=== PATIENT | female | born 1945 | race Caucasian/White ===

== ENCOUNTER 2016-06-01 10:19 | Inpatient (IN) ==
[2016-06-01] MEDS ORDERED: ZOFRAN 4 MG/2 ML IM STA (10:41)
[2016-06-01] MEDS ORDERED: MORPHINE 4 MG/ML SYRINGE IM STA (10:41)
[2016-06-01 11:00] LABS: BASOPHILS % (AUTO) 0.4 % (0.0-3.0); EOSINOPHILS # (AUTO) 0.1 K/ul (0.0-0.7); EOSINOPHILS % (AUTO) 1.1 % (0.0-7.0); HEMATOCRIT 36.3 % (37.0-47.0); HEMOGLOBIN 11.5 g/dl (12.0-16.0); IMMATURE GRANULOCYTE % (AUTO) 0.4 % (0.0-5.0); LYMPHOCYTES # (AUTO) 0.9 K/uL (0.60-3.4); LYMPHOCYTES % (AUTO) 16.9 (10.0-50.0); MEAN CORPUSCULAR HEMOGLOBIN 28.6 pg (27.0-31.0); MEAN CORPUSCULAR HGB CONC 31.7 (31.8-35.4); MEAN CORPUSCULAR VOLUME 90.3 fl (81.0-99.0); MONOCYTES # (AUTO) 0.3 K/uL (0.4-2.0); MONOCYTES % (AUTO) 4.7 (0-10); NEUTROPHILS # (AUTO) 4.3 K/ul (2.0-6.9); NEUTROPHILS % (AUTO) 76.5; PLATELET COUNT 188 10^3/uL (140-440); RED BLOOD COUNT 4.02 10^6/ul (4.20-5.40); WHITE BLOOD COUNT 5.57 K/ul (4.6-10.2)
--- NOTE | 2016-06-01 11:15 | DI ---
EXAM: Chest two views HISTORY: Cough COMPARISON: None TECHNIQUE: Two views of the chest were performed FINDINGS: There is lower airway bronchial wall thickening. Lungs are hyperinflated There is no foc al airspace consolidation. There is no pleural effusion or pneumothorax. The heart is normal in siz e. The mediastinal contour is normal, noting atherosclerosis. There is no acute abnormality of the bones. IMPRESSION: 1. Lower airway thickening may represent reactive airways disease or bronchiolitis. No focal airsp madhu consolidation. 2. Hyperinflated lungs suggest chronic obstructive pulmonary disease
[2016-06-01 11:21] LABS: ALBUMIN 4.1 g/dL (3.4-5.0); ALBUMIN/GLOBULIN RATIO 1.32; ANION GAP 15.7; BILIRUBIN,TOTAL 0.43 mg/dL (0.00-1.20); CALCIUM 10.4 mg/dL (8.2-10.2); CREATININE 3.07 mg/dL (0.60-1.30); POTASSIUM 4.7 mmol/L (3.5-5.10); TOTAL PROTEIN 7.2 g/dL (5.8-8.1)
[2016-06-01 11:22] LABS: BUN/CREATININE RATIO 8.79
[2016-06-01 11:26] LABS: BILIRUBIN,URINE Negative (NEGATIVE); KETONES,URINE Negative (NEGATIVE); LEUKOCYTE ESTERASE ,URINE Negative (NEGATIVE); NITRITE,URINE Positive (NEGATIVE); PH,URINE 6.5 (5-9); PROTEIN,URINE Negative (NEGATIVE); URINE, BLOOD Negative (NEGATIVE)
[2016-06-01 11:30] LABS: ADD URINE MICROSCOPIC YES
[2016-06-01 11:31] LABS: BACTERIA,URINE 1+ (NOT PRESENT)
--- NOTE | 2016-06-01 11:46 | CT ---
EXAM: CT of the abdomen and pelvis without contrast History: Abdominal pain. Technique: Multiplanar CT images through the abdomen pelvis were obtained without the administratio n of IV contrast Findings: Numerous right basilar micronodules. Lingular subsegmental atelectasis. No acute osseou s abnormalities. Partial sacralization of L5 bilaterally. Moderate degenerative disc disease at L4 -L5. A few tiny hypoattenuating liver lesions which are too small to characterize accurately by CT but li twyla represent cysts or hemangiomas. Long right lobe of the liver. Calcified granuloma within the spleen. No peripancreatic inflammation. Atherosclerotic vascular calcifications and mild focal dil atation of the infrarenal abdominal aorta. Innumerable bilateral renal cysts some which appear proteinaceous or hemorrhagic. Punctate nonobstr ucting bilateral renal calculi. No hydronephrosis. Adrenal glands are unremarkable. No bowel obst ruction. No free air. No ascites. No bladder wall thickening. Uterus is not seen. Colonic diver ticulosis. Impression: 1. No acute intra-abdominal or pelvic process. 2. Numerous bilateral renal cystic lesions most appear simple but some complicated. 3. Colonic diverticulosis. 4. Small hypoattenuating liver lesions are too small to characterize accurately by CT but most like ly represent small cysts or hemangiomas. 5. Right lower lobe micronodules most likely infectious or inflammatory etiology.
--- NOTE | 2016-06-01 12:40 | ED.PDOC ---
General ED Provider: Dr. 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 AT BE[employer] WORK[facility] OFFICE) GI Complaint Exam - Abdominal Pain Complaint/Exam Onset: Gradual Duration: 1 day Symptoms Are: Still present Timing: Constant Initial Severity: Mild Current Severity: Mild Location of Pain: Suprapubic Character: Reports: Aching Aggravating: Reports: None Alleviating: Reports: None Associated Signs and Symptoms: Denies: Diaphoresis, Fever, Cough, Chest pain, Dizziness, Back pain, Constipation, Blood in stool, Dysuria, Urinary frequency, Decreased urine output, Decreased appetite, Vaginal bleeding, Vaginal discharge , Nausea, Vomiting, Diarrhea, Sore throat, Decreased activity Cardiac Risk Factors: Reports: Hypertension Review of Systems - Review Of Systems Constitutional: Reports: Malaise Eyes: Reports: No symptoms Ears, Nose, Mouth, Throat: Reports: No symptoms Respiratory: Reports: No symptoms Cardiac: Reports: No symptoms GI: Reports: Abdominal pain : Reports: No symptoms Musculoskeletal: Reports: No symptoms Skin: Reports: No symptoms Neurological: Reports: No symptoms Endocrine: Reports: No symptoms Hematologic/Lymphatic: Reports: No symptoms All Other Systems: Reviewed and Negative Past Medical History - Past Medical History Previously Healthy: No Endocrine: Reports: Hypothyroid Cardiovascular: Reports: Hypertension Respiratory: Reports: None Hematological: Reports: None Gastrointestinal: Reports: None Genitourinary: Reports: CKD Neuro/Psych: Reports: None Musculoskeletal: Reports: None Cancer: Reports: None Last Menstrual Period: unknown - Surgical History General Surgical History: Reports: Unknown - Family History Family History: Reports: Unknown - Social History Smoking Status: Former smoker Hx Substance Use: No Alcohol Screening: None Physical Exam - Physical Exam Appearance: Well-appearing Ill-appearing: Mild Pain Distress: Mild Eyes: KAMRAN, EOMI, Conjunctiva clear ENT: Ears normal, Nose normal, Oropharynx normal Respiratory: Airway patent, Breath sounds clear, Breath sounds equal, Respirations nonlabored Cardiovascular: RRR, Pulses normal, No rub, No murmur GI/: Soft, Nontender, No masses, Bowel sounds normal, No Organomegaly Musculoskeletal: Normal strength, ROM intact, No edema, No calf tenderness Skin: Warm, Dry, Normal color Neurological: Sensation intact, Motor intact, Reflexes intact, Cranial nerves intact, Alert, Oriented Psychiatric: Affect appropriate, Mood appropriate Interpretation - Radiology Interpretation Radiology Interpretation By: Radiologist Radiology Results: Negative Exam Interpreted: CXR Physician Notification - Case Discussed Physician Notified: PMD Time of Notification: 13:18 Admit To: Inpatient Critical Care Note - Critical Care Note Total Time (mins): 0 Course - Course Hematology/Chemistry: 06/01/16 10:50 06/01/16 10:50 Orders, Labs, Meds: Lab Review 06/01/16 10:50 WBC 5.57 RBC 4.02 L Hgb 11.5 L Hct 36.3 L MCV 90.3 MCH 28.6 MCHC 31.7 L RDW Coeff of Fran 13.7 Plt Count 188 Immature Gran % (Auto) 0.4 Neut % (Auto) 76.5 Lymph % (Auto) 16.9 Mingo % (Auto) 4.7 Eos % (Auto) 1.1 Baso % (Auto) 0.4 Immature Gran # (Auto) 0.0 Neut # 4.3 Lymph # 0.9 Mingo # 0.3 L Eos # 0.1 Baso # 0.0 Sodium 135 L Potassium 4.7 Chloride 97 L Carbon Dioxide 27 Anion Gap 15.7 BUN 27 H Creatinine 3.07 H Estimated GFR (MDRD) 15.00 BUN/Creatinine Ratio 8.79 Glucose 125 H Calcium 10.4 H Total Bilirubin 0.43 AST 14 L ALT 9 L Alkaline Phosphatase 70 Total Protein 7.2 Albumin 4.1 Globulin 3.1 Albumin/Globulin Ratio 1.32 Amylase 64 Lipase 29 Urine Color Yellow Urine Clarity Clear Urine pH 6.5 Ur Specific Eldena 1.010 Urine Protein Negative Urine Glucose (UA) Trace Urine Ketones Negative Urine Blood Negative Urine Nitrite Positive Urine Bilirubin Negative Urine Urobilinogen 1.0 Ur Leukocyte Esterase Negative Ur Squamous Epith Cells 10-20 Urine Bacteria 1+ Orders Category Date Time Status AMYLASE Stat LAB 06/01/16 10:50 Completed CBC W/ AUTO DIFF Stat LAB 06/01/16 10:50 Completed COMPREHENSIVE METABOLIC PANEL Stat LAB 06/01/16 10:50 Completed LIPASE Stat LAB 06/01/16 10:50 Completed URINALYSIS C & S IF INDICATED Stat LAB 06/01/16 10:50 Completed URINE CULTURE Routine LAB 06/01/16 10:33 Received Morphine Sulfate [Morphine 4 mg/ml Syringe] MEDS 06/01/16 10:41 Discontinued 4 mg IM ONCE STA Ondansetron HCl/Pf [Zofran 4 mg/2 ml] MEDS 06/01/16 10:41 Discontinued 4 mg IM ONCE STA CHEST, 2 VIEWS PA & LAT Stat RADS 06/01/16 10:[address] ABDOMEN/PELVIS WO CONTRAST Stat RADS 06/01/16 10:40 Completed Medications Discontinued Medications Generic Name Dose Route Start Last Admin Trade Name Freq PRN Reason Stop Dose Admin Morphine Sulfate 4 mg 06/01/16 10:41 06/01/16 10:58 Morphine 4 Mg/Ml Syringe IM 06/01/16 10:42 4 mg ONCE STA Administration Ondansetron HCl 4 mg 06/01/16 10:41 06/01/16 10:59 Zofran 4 Mg/2 Ml IM 06/01/16 10:42 4 mg ONCE STA Administration Vital Signs: Temp Pulse Resp BP Pulse Ox 06/01/16 10:20 98.5 F 107 H 20 135/80 94 L Departure - Departure Time of Disposition: 14:00 Disposition: ADMITTED INPATIENT Discharge Problem: Abdominal pain, Renal failure, Hypercalcemia Anemia Qualifiers: Anemia type: unspecified type Qualifier Code: (D64.9) Anemia, unspecified Instructions: Chronic Kidney Disease (ED) Condition: Good Pt referred to PMD for follow-up: Yes Additional Instructions: Please call your Family Physician as soon as possible to schedule a follow-up appointment. Allergies/Adverse Reactions: Allergies No Known Allergies Allergy (Unverified 06/01/16 10:29) Home Medications: Ambulatory Orders Calcium Carbonate/Vitamin D3 [Calcium 500 + Vit D3 400 Tab] 1 each PO BID Clonidine HCl 0.5 mg PO BID 06/01/16 Hydrocodone/Acetaminophen [Hydrocodon-Acetaminoph 7.5-325] 1 each PO BID PRN 11/10 Levothyroxine Sodium [Synthroid] 75 mcg PO QDAC 06/01/16 Lisinopril/Hydrochlorothiazide [Lisinopril-Hctz 10-12.5 mg Tab] 1 each PO DAILY 06/01/16 Ranitidine HCl 150 mg PO BID 06/01/16 Trazodone HCl 50 mg PO BEDTIME 06/01/16 Disposition Discussed With: Patient, Family
[2016-06-01] MEDS: SODIUM CHLORIDE 1,000 ML IV SCH (14:29)
[2016-06-01 15:50] VITALS: BMI 38.2
[2016-06-01] MEDS: ZANTAC PO SCH (18:00)
[2016-06-01] MEDS ORDERED: ROCEPHIN ONE (20:13)
[2016-06-01] MEDS: CATAPRES PO SCH (20:26)
[2016-06-01] MEDS ORDERED: CLONIDINE HCL 0.5 MG PO SCH (21:00)
[2016-06-01] MEDS ORDERED: ROCEPHIN 1 GM in SODIUM CHLORIDE 50 ML IV SCH (21:00)
[2016-06-01] MEDS ORDERED: NON-FORMULARY MEDICATION (Ranitidine Hcl [Ranitidine Hcl] 150 MG) PO SCH ×22 (21:00)
[2016-06-01] MEDS: NORCO 7.5-325 PO PRN (21:40)
[2016-06-02] MEDS: SODIUM CHLORIDE 1,000 ML IV SCH ×2 (04:58→15:45)
[2016-06-02] MEDS: SYNTHROID PO SCH (05:59)
[2016-06-02] MEDS: ZANTAC PO SCH ×2 (05:59→16:22)
[2016-06-02 06:08] LABS: BASOPHILS % (AUTO) 0.4 % (0.0-3.0); EOSINOPHILS # (AUTO) 0.1 K/ul (0.0-0.7); EOSINOPHILS % (AUTO) 1.5 % (0.0-7.0); HEMATOCRIT 33.1 % (37.0-47.0); HEMOGLOBIN 10.2 g/dl (12.0-16.0); IMMATURE GRANULOCYTE % (AUTO) 0.4 % (0.0-5.0); LYMPHOCYTES # (AUTO) 1.4 K/uL (0.60-3.4); LYMPHOCYTES % (AUTO) 26.3 (10.0-50.0); MEAN CORPUSCULAR HEMOGLOBIN 28.7 pg (27.0-31.0); MEAN CORPUSCULAR HGB CONC 30.8 (31.8-35.4); MEAN CORPUSCULAR VOLUME 93.2 fl (81.0-99.0); MONOCYTES # (AUTO) 0.4 K/uL (0.4-2.0); MONOCYTES % (AUTO) 7.8 (0-10); NEUTROPHILS # (AUTO) 3.4 K/ul (2.0-6.9); NEUTROPHILS % (AUTO) 63.6; PLATELET COUNT 156 10^3/uL (140-440); RED BLOOD COUNT 3.55 10^6/ul (4.20-5.40); WHITE BLOOD COUNT 5.29 K/ul (4.6-10.2)
[2016-06-02 06:30] LABS: ALBUMIN 3.3 g/dL (3.4-5.0); ALBUMIN/GLOBULIN RATIO 1.27; ANION GAP 12.7; BILIRUBIN,TOTAL 0.29 mg/dL (0.00-1.20); BUN/CREATININE RATIO 9.17; CALCIUM 9.1 mg/dL (8.2-10.2); CREATININE 3.38 mg/dL (0.60-1.30); POTASSIUM 4.7 mmol/L (3.5-5.10); TOTAL PROTEIN 5.9 g/dL (5.8-8.1)
[2016-06-02] MEDS ORDERED: ZESTRIL PO SCH (09:00)
[2016-06-02] MEDS ORDERED: HYDROCHLOROTHIAZIDE PO SCH (09:00)
[2016-06-02] MEDS: NORCO 7.5-325 PO PRN ×2 (09:06→21:54)
[2016-06-02] MEDS: CATAPRES PO SCH (09:06)
[2016-06-02] MEDS: ROCEPHIN 1 GM in SODIUM CHLORIDE 50 ML IV SCH (20:58)
[2016-06-03] MEDS: SODIUM CHLORIDE 1,000 ML IV SCH ×3 (00:39→18:32)
[2016-06-03 05:15] LABS: BASOPHILS % (AUTO) 0.5 % (0.0-3.0); EOSINOPHILS # (AUTO) 0.1 K/ul (0.0-0.7); HEMATOCRIT 34.5 % (37.0-47.0); HEMOGLOBIN 10.1 g/dl (12.0-16.0); IMMATURE GRANULOCYTE % (AUTO) 0.3 % (0.0-5.0); LYMPHOCYTES # (AUTO) 1.5 K/uL (0.60-3.4); LYMPHOCYTES % (AUTO) 24.7 (10.0-50.0); MEAN CORPUSCULAR HEMOGLOBIN 27.7 pg (27.0-31.0); MEAN CORPUSCULAR HGB CONC 29.3 (31.8-35.4); MEAN CORPUSCULAR VOLUME 94.8 fl (81.0-99.0); MONOCYTES # (AUTO) 0.4 K/uL (0.4-2.0); MONOCYTES % (AUTO) 6.5 (0-10); NEUTROPHILS # (AUTO) 3.9 K/ul (2.0-6.9); PLATELET COUNT 165 10^3/uL (140-440); RED BLOOD COUNT 3.64 10^6/ul (4.20-5.40); WHITE BLOOD COUNT 5.98 K/ul (4.6-10.2)
[2016-06-03 05:47] LABS: ALBUMIN 3.3 g/dL (3.4-5.0); ALBUMIN/GLOBULIN RATIO 1.18; BILIRUBIN,TOTAL 0.18 mg/dL (0.00-1.20); BUN/CREATININE RATIO 10.65; CALCIUM 8.5 mg/dL (8.2-10.2); CREATININE 3.19 mg/dL (0.60-1.30); TOTAL PROTEIN 6.1 g/dL (5.8-8.1)
[2016-06-03] MEDS: ZANTAC PO SCH ×2 (05:48→16:36)
[2016-06-03] MEDS: SYNTHROID PO SCH (05:48)
[2016-06-03] MEDS: NORCO 7.5-325 PO PRN ×2 (08:28→18:22)
[2016-06-03] MEDS ORDERED: PEPTO-BISMOL SUSP PO PRN (14:01)
[2016-06-03] MEDS ORDERED: PEPTO-BISMOL CHEW ONE (14:18)
[2016-06-03] MEDS ORDERED: FLAGYL 500 MG/100 ML 100 ML IV ONE ×2 (14:20→20:38)
[2016-06-03] MEDS: FLAGYL 500 MG/100 ML 250 MG in PREMIX 100 ML NS 1 BAG IV SCH ×2 (14:28→21:44)
[2016-06-03] MEDS: PEPTO-BISMOL CHEW PO PRN (21:02)
[2016-06-03] MEDS: ROCEPHIN 1 GM in SODIUM CHLORIDE 50 ML IV SCH (21:02)
[2016-06-04] MEDS: NORCO 7.5-325 PO PRN ×3 (02:19→19:15)
[2016-06-04] MEDS: SODIUM CHLORIDE 1,000 ML IV SCH ×3 (02:51→20:12)
[2016-06-04] MEDS ORDERED: FLAGYL 500 MG/100 ML 100 ML IV ONE (04:30)
[2016-06-04] MEDS: FLAGYL 500 MG/100 ML 250 MG in PREMIX 100 ML NS 1 BAG IV SCH (04:39)
[2016-06-04 05:08] LABS: BASOPHILS % (AUTO) 0.5 % (0.0-3.0); EOSINOPHILS # (AUTO) 0.1 K/ul (0.0-0.7); EOSINOPHILS % (AUTO) 2.1 % (0.0-7.0); HEMATOCRIT 34.4 % (37.0-47.0); HEMOGLOBIN 10.1 g/dl (12.0-16.0); LYMPHOCYTES # (AUTO) 1.2 K/uL (0.60-3.4); LYMPHOCYTES % (AUTO) 19.8 (10.0-50.0); MEAN CORPUSCULAR HEMOGLOBIN 28.5 pg (27.0-31.0); MEAN CORPUSCULAR HGB CONC 29.4 (31.8-35.4); MEAN CORPUSCULAR VOLUME 96.9 fl (81.0-99.0); MONOCYTES # (AUTO) 0.4 K/uL (0.4-2.0); MONOCYTES % (AUTO) 6.4 (0-10); NEUTROPHILS # (AUTO) 4.4 K/ul (2.0-6.9); NEUTROPHILS % (AUTO) 70.2; PLATELET COUNT 147 10^3/uL (140-440); RED BLOOD COUNT 3.55 10^6/ul (4.20-5.40); WHITE BLOOD COUNT 6.21 K/ul (4.6-10.2)
[2016-06-04 05:32] LABS: ALBUMIN 3.1 g/dL (3.4-5.0); ALBUMIN/GLOBULIN RATIO 1.19; ANION GAP 10.7; BILIRUBIN,TOTAL 0.18 mg/dL (0.00-1.20); BUN/CREATININE RATIO 9.91; CALCIUM 8.1 mg/dL (8.2-10.2); CREATININE 2.42 mg/dL (0.60-1.30); POTASSIUM 4.7 mmol/L (3.5-5.10); TOTAL PROTEIN 5.7 g/dL (5.8-8.1)
[2016-06-04] MEDS: PEPTO-BISMOL CHEW PO PRN ×2 (05:41→14:38)
[2016-06-04] MEDS: SYNTHROID PO SCH (05:41)
[2016-06-04] MEDS: ZANTAC PO SCH ×2 (05:41→17:55)
[2016-06-04] MEDS: ZOFRAN 4 MG/2 ML IVP PRN (20:03)
[2016-06-05] MEDS: NORCO 7.5-325 PO PRN ×4 (03:19→22:58)
[2016-06-05] MEDS: ZOFRAN 4 MG/2 ML IVP PRN ×2 (03:53→11:04)
[2016-06-05] MEDS: SODIUM CHLORIDE 1,000 ML IV SCH ×3 (03:53→17:39)
[2016-06-05 05:26] LABS: BASOPHILS # (AUTO) 0.1 K/uL (0-0.2); BASOPHILS % (AUTO) 0.7 % (0.0-3.0); EOSINOPHILS # (AUTO) 0.1 K/ul (0.0-0.7); EOSINOPHILS % (AUTO) 1.9 % (0.0-7.0); HEMATOCRIT 35.6 % (37.0-47.0); HEMOGLOBIN 9.9 g/dl (12.0-16.0); IMMATURE GRANULOCYTE % (AUTO) 0.6 % (0.0-5.0); LYMPHOCYTES # (AUTO) 1.2 K/uL (0.60-3.4); LYMPHOCYTES % (AUTO) 17.2 (10.0-50.0); MEAN CORPUSCULAR HEMOGLOBIN 28.4 pg (27.0-31.0); MEAN CORPUSCULAR HGB CONC 27.8 (31.8-35.4); MONOCYTES # (AUTO) 0.4 K/uL (0.4-2.0); MONOCYTES % (AUTO) 5.8 (0-10); NEUTROPHILS # (AUTO) 5.1 K/ul (2.0-6.9); NEUTROPHILS % (AUTO) 73.8; PLATELET COUNT 148 10^3/uL (140-440); RED BLOOD COUNT 3.49 10^6/ul (4.20-5.40); WHITE BLOOD COUNT 6.88 K/ul (4.6-10.2)
[2016-06-05] MEDS: ZANTAC PO SCH ×2 (05:39→16:58)
[2016-06-05] MEDS: SYNTHROID PO SCH (05:39)
[2016-06-05 05:43] LABS: ALBUMIN 3.1 g/dL (3.4-5.0); ALBUMIN/GLOBULIN RATIO 1.19; ANION GAP 9.9; BILIRUBIN,TOTAL 0.18 mg/dL (0.00-1.20); BUN/CREATININE RATIO 9.67; CALCIUM 7.9 mg/dL (8.2-10.2); CREATININE 1.86 mg/dL (0.60-1.30); POTASSIUM 4.9 mmol/L (3.5-5.10); TOTAL PROTEIN 5.7 g/dL (5.8-8.1)
[2016-06-05] MEDS ORDERED: DESYREL ONE (20:32)
[2016-06-05] MEDS: ZESTRIL PO SCH (20:52)
[2016-06-05] MEDS ORDERED: DESYREL PO SCH (21:00)
[2016-06-06 05:31] LABS: BASOPHILS % (AUTO) 0.5 % (0.0-3.0); EOSINOPHILS # (AUTO) 0.1 K/ul (0.0-0.7); EOSINOPHILS % (AUTO) 2.2 % (0.0-7.0); HEMATOCRIT 35.9 % (37.0-47.0); HEMOGLOBIN 10.5 g/dl (12.0-16.0); IMMATURE GRANULOCYTE % (AUTO) 0.9 % (0.0-5.0); LYMPHOCYTES # (AUTO) 1.3 K/uL (0.60-3.4); LYMPHOCYTES % (AUTO) 20.6 (10.0-50.0); MEAN CORPUSCULAR HEMOGLOBIN 28.6 pg (27.0-31.0); MEAN CORPUSCULAR HGB CONC 29.2 (31.8-35.4); MEAN CORPUSCULAR VOLUME 97.8 fl (81.0-99.0); MONOCYTES # (AUTO) 0.4 K/uL (0.4-2.0); MONOCYTES % (AUTO) 5.4 (0-10); NEUTROPHILS # (AUTO) 4.6 K/ul (2.0-6.9); NEUTROPHILS % (AUTO) 70.4; PLATELET COUNT 151 10^3/uL (140-440); RED BLOOD COUNT 3.67 10^6/ul (4.20-5.40); WHITE BLOOD COUNT 6.51 K/ul (4.6-10.2)
[2016-06-06 05:59] LABS: ALBUMIN 3.3 g/dL (3.4-5.0); ALBUMIN/GLOBULIN RATIO 1.14; BILIRUBIN,TOTAL 0.19 mg/dL (0.00-1.20); BUN/CREATININE RATIO 9.09; CREATININE 1.76 mg/dL (0.60-1.30); TOTAL PROTEIN 6.2 g/dL (5.8-8.1)
[2016-06-06] MEDS: ZANTAC PO SCH (06:16)
[2016-06-06] MEDS: SYNTHROID PO SCH (06:17)
[2016-06-06] MEDS: NORCO 7.5-325 PO PRN ×2 (06:25→15:47)
--- NOTE | 2016-06-06 07:22 | HP ---
SOURCE: The source of this information is prior knowledge of the patient, some review of her office records, her current chart as well as discussion with she and ER personnel; all considered reliable. PATIENT PROFILE: Ms. Rick is a 71-year-old female resident of [place]; she was cooperative. CHIEF COMPLAINT: "I am hurting in my abdomen." BRIEF HISTORY OF PRESENT ILLNESS: Somewhere around the she developed dysuria. She came to the office to get her [place] refilled for degenerative pain and when this was mentioned she was given Bactrim. She presented to the ER after having a day or two of dysuria improving; only to develop suprapubic or lower abdominal discomfort. She denied nausea, vomiting, diarrhea, hematuria or back pain. In the emergency department she was found to have 1+ bacteruria, nitrate but more importantly, was found to have a drop in GFR to 15. She has polycystic kidney disease and chronic renal insufficiency. Again, there has been no nausea, vomiting or diarrhea. She was admitted for IV fluids in hopes that we can improve her GFR and to give her Rocephin while pending culture to see if we can help her lower abdominal discomfort. A CT of her abdomen showed nothing other than the polycystic kidney disease. PAST HISTORY: CHILDHOOD: Unremarkable. ALLERGIES/INTOLERANCE: ETRAFON (sleepy), MOTRIN (GI upset), PRAVACHOL (leg cramps). CURRENT MEDICATIONS: 1. Norvasc/Amlodipine 10 mg one by mouth each day 2. Calcium/Vitamin D 600/400 mg/international units one by mouth twice a day 3. Catapres/Clonidine 0.1 mg twice a day 4. [place]/Hydrocodone/Acetaminophen 7.5/325 mg one by mouth three times a day as needed 5. Synthroid/Levothyroxine 75 mcg one a day 6. Zestoretic/Lisinopril/Hydrochlorothiazide 20/12.5 mg one by mouth each day 7. Zantac/Ranitidine 150 mg one by mouth twice a day 8. Ultram/Tramadol ER 100 mg every four hours as needed 9. Desyrel/Trazodone 50 mg at night 10. Bactrim DS one by mouth twice a day since 05/23 HOSPITALIZATIONS/SURGERIES/PROCEDURES: Admitted [facility] 01/05 through 8/21/91 for abdominal pain felt to be gastritis; she is 2, Para 2, AB 0. She had a cysto and dilatation by Dr. Lopez, [place] 1990; colonoscopy with diverticular findings, Dr. Enedelia Ruiz 07/19/1999; EGD with gastritis, Dr. Enedelia Ruiz, 12/13/04; colonoscopy with diverticular disease and hemorrhoids, Dr. Enedelia Ruiz, 12/10; cysto, Dr. Lopez after that; colonoscopy with polyp, diverticular disease , Dr. Enedelia Edouard, 02/13/10 repeat in 5 years; [facility] to repeat in five years. Previous history of tubal, thyroid surgery, Dr. Fracisco Edouard, 2002; HILDA and appendectomy at Dr. Elliot Edouard, 1981; bladder tape repair, Dr. John Edouard, 2000; [facility] FAMILY HISTORY: Asthma in mother, coronary disease in mother. Unknown type of kidney disease in mother. Lung cancer in maternal aunt and rectal cancer in nephew. Fibromyalgia in sister. HABITS: Smoker, age 18, two pack per day stopping 2001 with no significant alcohol. 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 She has two children, was in 1976. REVIEW OF SYSTEMS: GENERAL: She denies fever or injury. INTEGUMENT: Denies wound or rash. HEENT: Denies headache or visual change. NECK: Denies mass or tenderness. CHEST: Denies cough or wheeze. CARDIOVASCULAR: Denies chest pain, palpitations, ankle edema. GI: Denies nausea, vomiting, melena, diarrhea. : She currently now denies dysuria with no hematuria. MUSCULOSKELETAL/NEUROLOGIC: Same occasional back and neck pain; and occasional numbness particularly lower extremities. PHYSICAL EXAMINATION: VITALS: Temperature 98.5, pulse 107, BP 135/80, respirations 20. Height 5'5", weight 240 pounds. GENERAL: Younger than stated age white female in no obvious distress. INTEGUMENT: Eyegrounds are pink. Nonicteric sclerae. Mucous membranes are moist. No ankle edema. HEENT: Facial symmetry. Pupils equal, round, extraocular movements intact. NECK: No visible palpable mass or thyroid. Quite supple. CHEST: Clear equal breath sounds. CARDIOVASCULAR: Distant S1, S2 without murmur, carotid bruit. Distal pulses intact. GI: Tender in the suprapubic lower abdominal area but no mass or rebound. Obese. : Deferred. MUSCULOSKELETAL/NEUROLOGIC: Alert, oriented times three. Four quadrant movements extremities are equal. Purposeful conversation. Good insight. Oriented times three and pleasant. ASSESSMENT/PROBLEM LIST: 0. 71-year-old white female of advanced age. 1. Allergies/intolerances see above. 2. Procedural history - see above. 3. Family history - see above. 4. Gastritis on EGD. 5. Diverticular disease on colonoscopy. 6. Hemorrhoidal disease on colonoscopy. 7. Colon polyp disease on colonoscopy. 8. Previous smoker. 9. 2, Para 2, AB 0. 10. Menopausal - surgical. 11. Chronic kidney disease, Stage 3. 12. Polycystic kidney disease. 13. Diastolic changes on echo. 14. Spinal disk disease. 15. Spinal degenerative joint disease. 16. Chronic neck pain. 17. Chronic back pain. 18. Degenerative joint disease - diffuse. 19. Hypertension. 20. Fatty liver. 21. Hyperhidrosis. 22. Hyperlipidemia. 23. Hypopotassemia. 24. Hypothyroidism. 25. Steroid induced hyperglycemia. 26. Type 2 diabetes. 27. Urolithiasis history. 28. Vitamin D deficiency. 29. Gait decline - degenerative causes. REASON FOR ADMISSION: # ABDOMINAL PAIN - SUPRAPUBIC # ANOREXIA # ACUTE RENAL INSUFFICIENCY ON CHRONIC # DYSURIA AND OTHERS - APPEARS TO BE PARTIALLY TREATED UTI # ABNORMAL URINE - 1+ BACTERURIA AND NITRITE PLAN: 1. Empiric therapy with Rocephin while pending culture. 2. Fluids and watching serial labs. 3. Try to maintain stability of other chronic problems. 4. From the onset discharge planning is home if able. [facility]
[2016-06-06] MEDS: ZESTRIL PO SCH (08:13)
--- NOTE | 2016-06-06 09:11 | CT ---
EXAM: CT BRAIN HISTORY: Headache TECHNIQUE: CT brain without intravenous contrast. 5-mm axial sections with re-formations. COMPARISON: None FINDINGS: Brain is unremarkable without distinct evidence of hemorrhage or large vessel distribution recent ischemic infarction. There is no suggestion of acute hydrocephalus or subdural fluid collection. N o mass or mass effect. Cranium is within normal limits. Mastoid air cells are aerated. The visualized paranasal sinuses are clear. IMPRESSION: No acute intracranial process.
--- NOTE | 2016-06-06 09:54 | PN ---
DATE OF VISIT: 06/02/16 SUBJECTIVE: Admitted through the ER for suprapubic/lower abdominal pain. CT unremarkable except for chronic polycystic kidney disease. Dysuria and other UTI symptoms earlier in the week; admitted for IV fluids and discontinuation of her Zestril, Hydrochlorothiazide and Bactrim. Voiding a lot; weak when she is up but otherwise feels okay. No shortness of breath or chest pain. Appetite is back. Ate well this morning. OBJECTIVE: V/S: Temperature 97.6, pulse 76, BP 90/50, respirations 14. I & O is positive. CHEST: Clear. CARDIOVASCULAR: S1, S2 without murmur. GI: No rebound, guarding, mass and no apparent tenderness. : Urine culture is negative at this point (on Rocephin). LABS/X-RAYS: Potassium stable at 4.7; creatinine from 3.07 to 3.3, BUN from 27 to 31; GFR 15 to 13. ASSESSMENT: # Abdominal pain - probably with UTI # Acute renal insufficiency on chronic # Chronic renal insufficiency # Polycystic kidney disease # Hypertension # Relative hypotension PLAN: 1. Clarify that we want the Zestril and HCTZ stopped. 2. Increase IV fluids in attempt to improve blood pressure. 3. Watch labs serially. MTDD
--- NOTE | 2016-06-06 10:02 | PN ---
DATE OF VISIT: 06/03/16 SUBJECTIVE: Admitted through the ER with suprapubic/lower abdominal discomfort and acute renal insufficiency on top of chronic. History of polycystic kidney disease. Plan is to treat with IV fluids; she has tolerated these well without edema or shortness of breath. She voids frequently. Her abdominal pain persists but maybe less intense. No chest pain, shortness of breath, other abdominal pain, diarrhea, constipation; she had a bowel movement this morning that was normal. OBJECTIVE: V/S: Temperature 97.9, pulse 69, BP 129/69, respirations 18. CHEST: Clear. CARDIOVASCULAR: Regular without murmur or peripheral edema. GI: No rebound, guarding, mass or tenderness. Obese. LABS/X-RAYS: White count 5.98 steady; hemoglobin 10.1 steady. Chemistries show potassium 5 ( up from 4.7) and creatinine 1.19, BUN 34 with GFR 14 compared to 13. Urine culture at this point is still negative. No obvious distress. ASSESSMENT: # Acute renal insufficiency # Chronic renal insufficiency # Polycystic kidney disease # Suprapubic/lower abdominal pain - perhaps partially treated UTI/cystitis # Relative hypotension - resolved # Hypertension with treatment on hold # Anemia of chronic renal insufficiency; no other suspect at this point PLAN: 1. Continue to hold most meds and review 2. Labs/continue daily and review 3. Continue fluids and watch for tolerability or lack of 4. Discharge planning from the onset; home and if remains this stable. MTDD
--- NOTE | 2016-06-06 10:12 | PN ---
DATE OF VISIT: 06/04/16 SUBJECTIVE: Admitted with lower abdominal pain. CT unremarkable. She thought she had a UTI and had been started on Bactrim earlier. She has chronic kidney disease, Stage 3 with polycystic kidney features; her GFR had significantly declined in the ER and she was admitted for IV fluids. Her GFR has stabilized. She developed loose stools yesterday with C. diff pending. Empirically she was started on Flagyl. Her stools have improved. She has a headache without vomiting or visual change. OBJECTIVE: V/S: Temperature 98, pulse 69, respiratory rate 16, BP 135/58. GENERAL: No obvious distress. HEENT: Pupils equal and round. Extraocular movements intact. No point tenderness of the face or scalp. NECK: Supple without mass. CHEST: Clear. CARDIOVASCULAR: Regular, S1, S2 without murmur. GI: Obese, no rebound, guarding or tenderness. : Urine culture still now growth. LABS/X-RAYS: White count 6.21, hemoglobin 10.1 and steady; chemistries show BUN 24, creatinine 2.42 and note GFR now up to 20 from yesterday 15. ASSESSMENT: # Acute renal insufficiency - improving # Chronic kidney disease - Stage 3 # Polycystic kidney disease # Abdominal pain - lower abdominal and resolving (maybe partially or somewhat treated UTI and cystitis pain) # Diarrhea possibly antibiotic associated and cultures pending for C. difficile # Headache - with possibly tension # Hypertension - stable with medications held # Hypotension on admission - resolved PLAN: 1. Continue fluids and monitor labs 2. Increase usual pain medication for headache and empirically follow headache 3. Awaiting culture results and continue empiric Flagyl MTDD
--- NOTE | 2016-06-06 10:42 | PN ---
DATE OF VISIT: 06/05/16 SUBJECTIVE: She was admitted after several days of lower abdominal pain, suprapubic area. She presented to the office earlier thinking that she may have a UTI, was given Bactrim. She has polycystic kidney disease and chronic kidney disease, Stage 3. She became more fatigued and anorexic with more pain; presented to the ER where CT was unremarkable but her renal function had dropped considerably. She was admitted for IV fluids out of concern of a partially treated UTI for Rocephin. She received two days of Rocephin; her cultures were negative at that point and she was remaining afebrile. She then developed some loose stools. At that point , we got a C. diff, started on empiric Flagyl and stopped Rocephin. The loose stools have improved. The C. diff came back negative and her GFR has continued to improve with hydration and discontinuation of her usual Myles inhibitor and the Bactrim on admission. Her initial blood pressures were low; they improved with fluids and holding of the antihypertensive medications. She has chronic back pain; has been no better in bed. She has had a headache for a couple of days, it is the back and front of the head, a throbbing nature and unassociated with photophobia, head injury, fever or anything in particular that she can discern. She is eating though her appetite has been diminished. She has not walked much. OBJECTIVE: V/S: Temperature 98.3, pulse 68, BP 153/77, respirations 17, 02 sat 92% on room air. GENERAL: No acute distress. INTEGUMENT: No edema. Mucous membranes moist. Eyegrounds are pink. Nonicteric sclerae. HEENT: Facial symmetry. Pupils equal. No temporal artery tenderness. No point tenderness. NECK: Nontender, supple. CHEST: Clear. CARDIOVASCULAR: S1, S2 without murmur. Distal pulse intact. GI: Obese, nontender. LABS/X-RAYS: White count 6.88 and steady; hemoglobin 9.9 and steady. Potassium now down to 4.9 (highest was 5) and GFR is highest up to 27 (low 13). ASSESSMENT: # Abdominal pain - suprapubic and resolved with the above, may have been a partially treated UTI # Acute renal insufficiency (on chronic) - averted # Chronic kidney disease - stage 3 # Polycystic kidney disease # Hypotension - on admission and resolved # Hypertension # Diarrhea - after Rocephin may be simply antibiotic associated - C. diff negative # Headache without obvious cause - wonder about Trazodone withdrawal as it was held PLAN: 1. Resume Trazodone tonight 2. Continue narcotics for headache 3. Stop IV and recheck labs in the morning 4. Increase activity 5. She is aware of potential discharge tomorrow 6. We will start back her Myles inhibitor half dose MTDD
[2016-06-06 14:33] VITALS: BP 144/67; TEMP 98.3
[2016-06-06] MEDS ORDERED: DESYREL PO SCH (21:00)
--- NOTE | 2016-06-07 07:15 | DS ---
SOURCE: The source of this information is prior knowledge of the patient, some review of her office records, her current chart as well as discussion with she and ER personnel; all considered reliable. PATIENT PROFILE: Ms. Rick is a 71-year-old female resident of [place]; she was cooperative. CHIEF COMPLAINT: "I am hurting in my abdomen." BRIEF HISTORY OF PRESENT ILLNESS: Somewhere around the she developed dysuria. She came to the office to get her Madison refilled for degenerative pain and when this was mentioned she was given Bactrim. She presented to the ER after having a day or two of dysuria improving; only to develop suprapubic or lower abdominal discomfort. She denied nausea, vomiting, diarrhea, hematuria or back pain. In the emergency department she was found to have 1+ bacteruria, nitrate but more importantly, was found to have a drop in GFR to 15. She has polycystic kidney disease and chronic renal insufficiency. Again, there has been no nausea, vomiting or diarrhea. She was admitted for IV fluids in hopes that we can improve her GFR and to give her Rocephin while pending culture to see if we can help her lower abdominal discomfort. A CT of her abdomen showed nothing other than the polycystic kidney disease. PAST HISTORY: CHILDHOOD: Unremarkable. ALLERGIES/INTOLERANCE: ETRAFON (sleepy), MOTRIN (GI upset), PRAVACHOL (leg cramps). CURRENT MEDICATIONS: 1. Norvasc/Amlodipine 10 mg one by mouth each day 2. Calcium/Vitamin D 600/400 mg/international units one by mouth twice a day 3. Catapres/Clonidine 0.1 mg twice a day 4. Madison/Hydrocodone/Acetaminophen 7.5/325 mg one by mouth three times a day as needed 5. Synthroid/Levothyroxine 75 mcg one a day 6. Zestoretic/Lisinopril/Hydrochlorothiazide 20/12.5 mg one by mouth each day 7. Zantac/Ranitidine 150 mg one by mouth twice a day 8. Ultram/Tramadol ER 100 mg every four hours as needed 9. Desyrel/Trazodone 50 mg at night 10. Bactrim DS one by mouth twice a day since 05/23 HOSPITALIZATIONS/SURGERIES/PROCEDURES: Admitted [facility] 01/05 through 8/21/91 for abdominal pain felt to be gastritis; she is 2, Para 2, AB 0. She had a cysto and dilatation by Dr. Lopez, [place] 1990; colonoscopy with diverticular findings, Dr. Enedelia Ruiz 07/19/1999; EGD with gastritis, Dr. Enedelia Ruiz, 12/13/04; colonoscopy with diverticular disease and hemorrhoids, Dr. Enedelia Ruiz, 12/10; cysto, Dr. Lopez after that; colonoscopy with polyp, diverticular disease , Dr. Enedelia Edouard, 02/13/10 repeat in 5 years; [facility] repeat in five years. Previous history of tubal, thyroid surgery, Dr. Fracisco Edouard, 2002; HILDA and appendectomy at Dr. Elliot Edouard, 1981; bladder tape repair, Dr. John Edouard, 2000; [facility] FAMILY HISTORY: Asthma in mother, coronary disease in mother. Unknown type of kidney disease in mother. Lung cancer in maternal aunt and rectal cancer in nephew. Fibromyalgia in sister. HABITS: Smoker, age 18, two pack per day stopping 2001 with no significant alcohol. 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 She has two children, was in 1976. REVIEW OF SYSTEMS: GENERAL: She denies fever or injury. INTEGUMENT: Denies wound or rash. HEENT: Denies headache or visual change. NECK: Denies mass or tenderness. CHEST: Denies cough or wheeze. CARDIOVASCULAR: Denies chest pain, palpitations, ankle edema. GI: Denies nausea, vomiting, melena, diarrhea. : She currently now denies dysuria with no hematuria. MUSCULOSKELETAL/NEUROLOGIC: Same occasional back and neck pain; and occasional numbness particularly lower extremities. PHYSICAL EXAMINATION: VITALS: Temperature 98.5, pulse 107, BP 135/80, respirations 20. Height 5'5", weight 240 pounds. GENERAL: Younger than stated age white female in no obvious distress. INTEGUMENT: Eyegrounds are pink. Nonicteric sclerae. Mucous membranes are moist. No ankle edema. HEENT: Facial symmetry. Pupils equal, round, extraocular movements intact. NECK: No visible palpable mass or thyroid. Quite supple. CHEST: Clear equal breath sounds. CARDIOVASCULAR: Distant S1, S2 without murmur, carotid bruit. Distal pulses intact. GI: Tender in the suprapubic lower abdominal area but no mass or rebound. Obese. : Deferred. MUSCULOSKELETAL/NEUROLOGIC: Alert, oriented times three. Four quadrant movements extremities are equal. Purposeful conversation. Good insight. Oriented times three and pleasant. ASSESSMENT/PROBLEM LIST: 0. 71-year-old white female of advanced age. 1. Allergies/intolerances see above. 2. Procedural history - see above. 3. Family history - see above. 4. Gastritis on EGD. 5. Diverticular disease on colonoscopy. 6. Hemorrhoidal disease on colonoscopy. 7. Colon polyp disease on colonoscopy. 8. Previous smoker. 9. 2, Para 2, AB 0. 10. Menopausal - surgical. 11. Chronic kidney disease, Stage 3. 12. Polycystic kidney disease. 13. Diastolic changes on echo. 14. Spinal disk disease. 15. Spinal degenerative joint disease. 16. Chronic neck pain. 17. Chronic back pain. 18. Degenerative joint disease - diffuse. 19. Hypertension. 20. Fatty liver. 21. Hyperhidrosis. 22. Hyperlipidemia. 23. Hypopotassemia. 24. Hypothyroidism. 25. Steroid induced hyperglycemia. 26. Type 2 diabetes. 27. Urolithiasis history. 28. Vitamin D deficiency. 29. Gait decline - degenerative causes. HOSPITAL COURSE: She was placed on IV fluids rather aggressively at first. Her antihypertensives (particularly Zestoretic) was stopped. Her low blood pressure improved. She had two day dip in her GFR down to as low as 13 but then it began to improve. She had the 3 to 4 days of Bactrim; her culture ended up growing nothing and we did not use anymore antibiotics beyond a couple days of Rocephin while we were waiting on the culture. She developed loose stools on the Rocephin and we checked for C. difficile and it came back negative and the loose stools went away. As her labs began to improve she continued to have an occasional suprapubic abdominal discomfort; bothersome is that her CT didn't show much and her urine again was clear. We even bladder scanned her the day that she left and it was only 100 cc. She also said she had a headache; I thought it might have been secondary to her Trazodone initially being held. A CT of her head without contrast was negative. Believing we could manage all of this as an outpatient, we elected to attempt such. Her laboratories additionally showed low AST, ALT, albumin and note BNP on the . Her white count started at 5 and remained in that range. Hemoglobin started at 11.5 normocytic and again dropped to 9.9. DISCHARGE ASSESSMENT/PROBLEM LIST (CHANGED FROM ADMISSION): # Abdominal pain - suprapubic. It seemed to be improving but there is a degree of persistance that may need further testing. # Acute renal insufficiency (on chronic) - successfully averted. After potential UTI, Bactrim therapy and hypotension with antihypertensive medications. # Chronic kidney disease - Stage 3. # Polycystic kidney disease. # Hypotension on admission. # Hypertension by history. # Diarrhea after Rocephin and Bactrim - C. difficile negative. # Headaches that may be more related to tension. # Anemia - hemoglobin around 10 (following venipuncture and the above other illness). PLAN: 1. Discharge. 2. Medications: a) Madison 7.5 t.i.d. p.r.n. #45, no refill - picked up at office. b) Synthroid 75 mcg a day. c) Zestril 10 mg one a day #30 with one refill picked up at office. d) Zantac 150 mg b.i.d. e) Desyrel 50 mg at bedtime. 3. Diet: a) No added salt. 4. Activity: a) Gradually increase as able. 5. Followup: a) Followup with Dr. Galdamez 06/10 and call for time. b) Call if she is still having pain the day after discharge; we may try to start on referral to Urology at that point. PROGNOSIS: Good. CONDITION: Stable, improved. [facility]
== END 2016-06-06 16:43 | disposition home or self-care (01) | DRG 392 ==
LOC: ED 10:19 → MEDSURG A 13:49
PROVIDERS: ADMIT Family Medicine; ATTEND Family Medicine
DX: R10.30 Lower abdominal pain, unspecified (principal); Q61.3 Polycystic kidney, unspecified; N39.0 Urinary tract infection, site not specified; N28.9 Disorder of kidney and ureter, unspecified; I12.9 Hypertensive chronic kidney disease with stage 1 through stage 4 chronic kidney disease, or unspecified chronic kidney disease; N18.3 Chronic kidney disease, stage 3 (moderate); E83.52 Hypercalcemia; D64.9 Anemia, unspecified; M15.9 Polyosteoarthritis, unspecified; I10 Essential (primary) hypertension; E11.9 Type 2 diabetes mellitus without complications; R51 Headache; H53.149 Visual discomfort, unspecified; I95.89 Other hypotension; R19.7 Diarrhea, unspecified; M54.9 Dorsalgia, unspecified; G89.29 Other chronic pain; Z79.899 Other long term (current) drug therapy; Z87.891 Personal history of nicotine dependence
CPT/HCPCS: 36415; 80053; 81001; 82150; 83690; 83880; 85025; 87086; 87493; 93005; 93010; 97802; 99284

== ENCOUNTER 2017-12-23 07:44 | Day surgery (SDC) ==
[2017-12-23] MEDS ORDERED: LIDOCAINE 1% 20 ML MDV ID STA (08:02)
[2017-12-23] MEDS ORDERED: DIPRIVAN 20 ML VIAL IVP ONE (09:45)
[2017-12-23 15:38] VITALS: BP 146/67; TEMP 98.6
--- NOTE | 2017-12-24 11:07 | OP ---
PROCEDURE: COLONOSCOPY TO THE CECUM WITH SNARE POLYPECTOMY. ENDOSCOPIST: Marva PEDRO M.D. INDICATION: HISTORY OF POLYPS INSTRUMENT: [id number]. MEDICATION: PER ANESTHESIA. PROCEDURE: The patient was positioned for colonoscopy. The digital rectal exam was negative. The colonoscope was inserted through the anus and advanced to the cecum. The cecum was identified using the ileocecal valve and the appendiceal orifice as landmarks. The scope was slowly withdrawn through an adequately prepped colon. [place] Bowel Prep Score equals 9. On insertion we found a pedunculated polyp at 70cm removed using snare cautery. On withdraw we found a small polyp at 50cm removed using snare cautery. Scattered diverticular disease was seen and the retroflex exam was otherwise negative. The patient tolerated the procedure well without immediate complication. PLAN: 1. Suggest repeat colonoscopy in 5 years. CC: Dr. Rudolph RAMÍREZ
== END 2017-12-23 10:35 | disposition home or self-care (01) ==
LOC: SURG 07:44
PROVIDERS: ATTEND Internal Medicine Gastroenterology
DX: K63.5 Polyp of colon (principal); Z86.010 Personal history of colon polyps